=== PATIENT | female | born 1980 ===

== ENCOUNTER 2018-06-03 03:58 | Emergency (ER) | payer MEDICAID, MEDICARE ==
--- NOTE | 2018-06-03 04:13 | ED PDOC ---
Arrival/HPI - General Chief Complaint: Female Genitourinary Time Seen by Provider: 06/03/18 04:07 Historian: Patient, Supply Chain Engineer - History of Present Illness Narrative History of Present Illness (Text): 06/03/18 04:13 38 year old female, Albanian speaking, whose past medical history includes Ab1 and , presenting to the emergency department 37 weeks complaining of onset lower abdominal cramp intermittently this evening. She denies vaginal discharge, nausea vomiting, diarrhea, fever, chills, and or any other complaint. Time/Duration: 24 hours Symptom Onset: Gradual Symptom Course: Intermittent Quality: Cramping Activities at Onset: Light Context: Home Past Medical History - Provider Review Nursing Documentation Reviewed: Yes - Psychiatric Hx Substance Use: No - Surgical History Hx Section: Yes (x1) Family/Social History - Physician Review Nursing Documentation Reviewed: Yes Family/Social History: No Known Family HX Smoking Status: Never Smoked Hx Alcohol Use: No Hx Substance Use: No Allergies/Home Meds Allergies/Adverse Reactions: Allergies No Known Allergies Allergy (Verified 06/03/18 04:06) Review of Systems - Physician Review All systems were reviewed & negative as marked: Yes - Review of Systems Constitutional: absent: Fevers Respiratory: absent: SOB, Cough Cardiovascular: absent: Chest Pain Gastrointestinal: Abdominal Pain. absent: Diarrhea, Nausea, Vomiting Musculoskeletal: absent: Back Pain, Neck Pain Neurological: absent: Headache, Dizziness Physical Exam Vital Signs Reviewed: Yes Vital Signs Temp Pulse Resp BP Pulse Ox 06/03/18 04:06 97.3 F L 76 18 133/84 100 Temperature: Afebrile Blood Pressure: Normal Pulse: Regular Respiratory Rate: Normal Appearance: Positive for: Well-Appearing, Non-Toxic, Comfortable Pain Distress: None Mental Status: Positive for: Alert and Oriented X 3 - Systems Exam Head: Present: Atraumatic, Normocephalic Pupils: Present: PERRL Extroacular Muscles: Present: EOMI Conjunctiva: Present: Normal Mouth: Present: Moist Mucous Membranes Neck: Present: Normal Range of Motion Respiratory/Chest: Present: Clear to Auscultation, Good Air Exchange. No: Respiratory Distress, Accessory Muscle Use Cardiovascular: Present: Regular Rate and Rhythm, Normal S1, S2. No: Murmurs Abdomen: Present: Tenderness (no palpaple tenderness), Distention (abdominal is distended consistent with gestational age). No: Peritoneal Signs Genitourinary/Pelvic Exam: Present: Cervical os Closed, Other (bimanual exam, Os is closed no CMT, no discharge). No: Vaginal Discharge, Vaginal Bleeding Back: Present: Normal Inspection Upper Extremity: Present: Normal Inspection. No: Cyanosis, Edema Lower Extremity: Present: Normal Inspection. No: Edema Neurological: Present: GCS=15, CN II-XII Intact, Speech Normal Skin: Present: Warm, Dry, Normal Color. No: Rashes Psychiatric: Present: Alert, Oriented x 3, Normal Insight, Normal Concentration Medical Decision Making ED Course and Treatment: 06/03/18 04:19 Impression: 38 year old female, who presents to the emergency department 37 weeks with abdominal cramping. Plan: -- Reassess and disposition Progress Notes: doppler patient at bedside showed hear rate of 160 bpm. 06/03/18 04:22 The patient is choosing to leave against medical advice. I have personally explained to the patient, through domestic violence advocate, that choosing to do so may result in permanent bodily harm, disability, or . I have discussed at great length that without further evaluation and monitoring there may be unforeseen circumstances and/or deterioration causing permanent bodily harm or as a result of their choice. The patient is alert, oriented, and shows the mental capacity to make clear decisions regarding the patients health care at this time. The patient continues to wish to leave against medical advice. In light of the patients decision to leave against medical advice, follow-up has been arranged and the patient is aware of the importance to following up as instructed. The patient has been advised that they should return to the emergency room immediately if they change their mind at any time, or if their condition begins to change or worsen in any way. PATIENT STATES SHE WILL DRIVE TO HER HOSPITAL IN [place] WHERE SHE IS SET TO DELIVER . SHE WAS ADVISED AGAINST THIS ,BUT INSISTS AND WILL BE ACCOMPANIED BY HER PRESENT. - Scribe Statement The provider has reviewed the documentation as recorded by the Jass Saldaña Provider Scribe Attestation: All medical record entries made by the Scribe were at my direction and personally dictated by me. I have reviewed the chart and agree that the record accurately reflects my personal performance of the history, physical exam, medical decision making, and the department course for this patient. I have also personally directed, reviewed, and agree with the discharge instructions and disposition. Disposition/Present on Arrival - Present on Arrival Any Indicators Present on Arrival: No History of DVT/PE: No History of Uncontrolled Diabetes: No Urinary Catheter: No History of Decub. Ulcer: No History Surgical Site Infection Following: None - Disposition Have Diagnosis and Disposition been Completed?: Yes Diagnosis: Term , Abdominal pain Disposition: AGAINST MEDICAL ADVICE Disposition Time: 04:31 Condition: STABLE Forms: [employer] (Georgian)
[2018-06-03 04:19] VITALS: RESP 18; TEMP 97.3; O2SAT 100
[2018-06-03 04:31] VITALS: BP 130/72; PULSE 73
== END 2018-06-03 04:29 | disposition left against medical advice (07) ==
LOC: ED 03:58
DX: O26.893 Other specified pregnancy related conditions, third trimester (principal); R10.30 Lower abdominal pain, unspecified; Z3A.37 37 weeks gestation of pregnancy